=== PATIENT | female | born 2000 | race Two or more races ===

== ENCOUNTER 2023-08-21 18:23 | Emergency (ER) | payer OTHER ==
[~2023-08-21] VITALS: Ht 162.6 cm; Wt 70.3 kg
[2023-08-21 19:34] LABS: HEMATOCRIT 37.5 % (36.0-45.00); MEAN CELL VOLUME 86.7 fL (80.00-100.00); MEAN CORPUSCULAR HEMOGLOBIN 29.9 pg (27.00-32.0); MEAN CORPUSCULAR HGB CONC 34.5 g/dl (32.0-36.0); PLATELET COUNT 217 K/uL (150-450); RED BLOOD COUNT 4.33 M/uL (4.00-6.00)
[2023-08-21 19:35] LABS: URINE APPEARANCE Cloudy; URINE BILIRRUBIN Negative (NEGATIVE); URINE BLOOD Large; URINE COLOR Orange; URINE GLUCOSE Negative (NEGATIVE); URINE LEUKOCYTE Trace; URINE NITRATE Negative
[2023-08-21 19:38] LABS: URINE BACTERIA 2483.3 uL (0.0-1933); URINE EPITHELIAL CELLS 43.5 uL (0.0-38.8); URINE RBC 8131.8 uL (0.0-20.8); URINE WBC 45.1 uL (0.0-23.2)
[2023-08-21 19:48] LABS: URINE PROTEIN 100 (NEGATIVE)
[2023-08-21 19:54] LABS: INR 0.98; PARTIAL THROMBOPLASTIN TIME 26.7 SECONDS (22.0-34.0); PROTHROMBIN TIME 10.3 SECONDS (9.0-11.5)
[2023-08-21 20:13] LABS: CALCIUM 9.3 mg/dL (8.5-10.1); CREATININE SERUM 0.91 mg/dL (0.55-1.02); GFR 78.04; POTASSIUM 3.77 mEq/L (3.5-5.1)
[2023-08-21] MEDS ORDERED: RHOGAM ULTR1500 UNIT IM (21:11)
[2023-08-21] MEDS ORDERED: PROMETRIUM200 MG VAG (21:11)
[2023-08-21] MEDS ORDERED: DUI500 PO ×2 (21:34→21:35)
== END 2023-08-21 22:02 ==
LOC: ER 18:24
PROVIDERS: Nurse Practitioner Family
DX: O20.8 Other hemorrhage in early pregnancy (principal); Z3A.08 8 weeks gestation of pregnancy; Z91.040 Latex allergy status

== ENCOUNTER 2024-03-03 01:19 | Inpatient (IN) | payer OTHER ==
[~2024-03-03] VITALS: Ht 162.6 cm; Wt 1.8 kg
[~2024-03-03 01:19] MED LIST: DUI500 PO; PROMETRIUM200 MG VAG; RHOGAM ULTR1500 UNIT IM
[2024-03-03] MEDS ORDERED: RINGERS SOLUTION,LACTATED 1,000 ML IV SCH (01:30)
[2024-03-03] MEDS ORDERED: PRENATAL TABLE1 EAC1 PO (01:43)
[2024-03-03 02:03] LABS: HEMATOCRIT 33.7 % (36.0-45.00); MEAN CELL VOLUME 88.9 fL (80.00-100.00); MEAN CORPUSCULAR HGB CONC 34.3 g/dl (32.0-36.0); PH,URINE 6.5 (5.0-8.0); PLATELET COUNT 195 K/uL (150-450); RED BLOOD COUNT 3.79 M/uL (4.00-6.00); RED CELL DISTRIBUTION WIDTH 13.2 % (11.5-14.5); URINE APPEARANCE Clear; URINE BILIRRUBIN Negative (NEGATIVE); URINE BLOOD Negative; URINE COLOR Yellow; URINE GLUCOSE Negative (NEGATIVE); URINE KETONE Negative (NEGATIVE); URINE LEUKOCYTE Negative; URINE NITRATE Negative; URINE PROTEIN Negative (NEGATIVE); URINE UROBILINOGEN 0.2 E.U./dl
[2024-03-03 02:07] LABS: URINE BACTERIA 324.9 uL (0.0-1933); URINE EPITHELIAL CELLS 21.7 uL (0.0-38.8); URINE WBC 8.5 uL (0.0-23.2)
[2024-03-03 02:20] LABS: HEMOGLOBIN 11.6 g/dL (12.0-15.00); MEAN CORPUSCULAR HEMOGLOBIN 30.6 pg (27.00-32.0)
[2024-03-03 02:21] LABS: URINE RBC 0.6 uL (0.0-20.8)
[2024-03-03 02:33] LABS: ALBUMIN 2.8 gm/dL (3.4-5.0); BILIRUBIN TOTAL 0.4 mg/dL (0.3-1.2); CALCIUM 9.2 mg/dL (8.5-10.1); GFR 175.88; GLOBULINA 3.6 G/DL (2.4-3.5); INR < 0.93; PARTIAL THROMBOPLASTIN TIME 26.5 SECONDS (22.0-34.0); POTASSIUM 3.36 mEq/L (3.5-5.1); PROTHROMBIN TIME 9.5 SECONDS (9.0-11.5); TOTAL PROTEIN 6.4 gm/dL (6.4-8.2)
[2024-03-03 02:37] LABS: CREATININE SERUM 0.45 mg/dL (0.55-1.02)
[2024-03-03] MEDS ORDERED: AMPICILLIN SODIUM 2,000 MG VIAL IV STA (07:19)
[2024-03-03] MEDS ORDERED: PROMETHAZINE HCL 50 MG/ML AMPUL IM PRN (08:15)
[2024-03-03] MEDS ORDERED: CEFAZOLIN SODIUM 1,000 MG VIAL IV ONE (08:15)
[2024-03-03] MEDS ORDERED: MEPERIDINE HCL/PF 50 MG/ML VIAL IM PRN (08:15)
[2024-03-03] MEDS ORDERED: AMPICILLIN SODIUM 1,000 MG VIAL IV SCH (09:00)
[2024-03-03] MEDS ORDERED: OXYTOCIN 10 UNITS/ML VIAL IV ONE (09:00)
[2024-03-03] MEDS ORDERED: ERYTHROMYCIN BASE 1 GM TUBE OP ONE (09:00)
[2024-03-03] MEDS ORDERED: CEFAZOLIN SODIUM 1,000 MG VIAL IV SCH (14:00)
[2024-03-04 03:29] LABS: HEMATOCRIT 32.4 % (36.0-45.00); MEAN CELL VOLUME 90.9 fL (80.00-100.00); MEAN CORPUSCULAR HGB CONC 34.1 g/dl (32.0-36.0); PLATELET COUNT 156 K/uL (150-450); RED BLOOD COUNT 3.56 M/uL (4.00-6.00); RED CELL DISTRIBUTION WIDTH 13.4 % (11.5-14.5)
[2024-03-04] MEDS ORDERED: OxyCODONE HCL/APAP UD (PERCOCET) PO PRN (06:45)
[2024-03-04] MEDS ORDERED: ACETAMINOPHEN 500 MG GEL..CAP PO PRN (06:45)
[2024-03-06] MEDS ORDERED: BUTALB/ACETAMINOPHEN/CAFFEINE 1 TAB TABLET PO PRN (16:00)
[2024-03-07] MEDS ORDERED: BUTALBIT-ACETA1 EACH PO (08:06)
[2024-03-07] MEDS ORDERED: IBUPROFEN800 MG PO (08:06)
== END 2024-03-07 09:13 | disposition home or self-care (01) | DRG 786 ==
LOC: OBS/DEL 01:19 → O/R 04:38 → LDR 04:38 → O/R 07:25 → OB/GYN 10:10
PROVIDERS: ADMIT Specialist; ATTEND Specialist
PROC: 4A1HXCZ Monitoring of Products of Conception, Cardiac Rate, External Approach (ICD-10-PCS; 2024-03-03)
PROC: BY4FZZZ Ultrasonography of Third Trimester, Single Fetus (ICD-10-PCS; 2024-03-03)
PROC: 10D00Z1 Extraction of Products of Conception, Low, Open Approach (ICD-10-PCS; principal; 2024-03-03 07:00)
DX: O32.1XX0 Maternal care for breech presentation, not applicable or unspecified (principal); O60.14X0 Preterm labor third trimester with preterm delivery third trimester, not applicable or unspecified; O42.013 Preterm premature rupture of membranes, onset of labor within 24 hours of rupture, third trimester; O74.5 Spinal and epidural anesthesia-induced headache during labor and delivery; G97.1 Other reaction to spinal and lumbar puncture; Z3A.36 36 weeks gestation of pregnancy; Z37.0 Single live birth; Z20.822 Contact with and (suspected) exposure to COVID-19